=== PATIENT | male | born 1985 | race Hispanic/Latino ===

== ENCOUNTER 2018-08-27 16:57 | Emergency (ER) | payer MEDICAID, OTHER ==
[2018-08-27 18:19] VITALS: BP 136/80; PULSE 67; RESP 18; TEMP 98.4; O2SAT 100
--- NOTE | 2018-08-27 21:38 | ED PDOC ---
HPI: Male Pain Chief Complaint (Provider): Male genitourinary History Per: Patient History/Exam Limitations: no limitations Onset/Duration Of Symptoms: Days (2x weeks) Current Symptoms Are (Timing): Still Present Severity: Moderate Quality Of Discomfort: Other (irritation) Associated Symptoms: denies: Other (denies difference in bowel movement, fever.) Additional Complaint(s): 32 year old male with no pertinent medical history presents to the ED with complaints of irritation around his anus for 2x weeks. Patient denies difference in bowel movement and denies fevers. Patient reports last having unprotected anal sexual intercourse 3x months ago. PMD: None provided. <Carolyn Flores - Last Filed: 08/27/18 23:22> <Yaneli Petit - Last Filed: 09/01/18 17:09> Time Seen by Provider: 08/27/18 19:44 Chief Complaint (Nursing): Male Genitourinary Past Medical History Reviewed: Historical Data, Nursing Documentation, Vital Signs Vital Signs: Last Vital Signs Temp 98.4 F 08/27/18 18:12 Pulse 67 08/27/18 18:12 Resp 18 08/27/18 18:12 BP 136/80 08/27/18 18:12 Pulse Ox 100 08/27/18 18:12 - Medical History PMH: Asthma - Surgical History Surgical History: Tonsillectomy - Family History Family History: States: Unknown Family Hx <Carolyn Flores - Last Filed: 08/27/18 23:22> Vital Signs: Last Vital Signs Temp 98.4 F 08/27/18 18:12 Pulse 67 08/27/18 18:12 Resp 18 08/27/18 18:12 BP 136/80 08/27/18 18:12 Pulse Ox 100 08/27/18 23:22 <Yaneli Petit - Last Filed: 09/01/18 17:09> - Allergies Allergies/Adverse Reactions: Allergies Allergy/AdvReac Type Severity Reaction Status Date / Time No Known Allergies Allergy Verified 08/27/18 18:10 Review of Systems ROS Statement: Except As Marked, All Systems Reviewed And Found Negative Constitutional: Negative for: Fever Gastrointestinal: Negative for: Other (denies difference in bowel movement ) <Carolyn Flores - Last Filed: 08/27/18 23:22> Physical Exam - Reviewed Nursing Documentation Reviewed: Yes Vital Signs Reviewed: Yes - Physical Exam Appears: Positive for: Well, Non-toxic, No Acute Distress Head Exam: Positive for: ATRAUMATIC, NORMOCEPHALIC Skin: Positive for: Normal Color Cardiovascular/Chest: Positive for: Regular Rate, Rhythm Respiratory: Positive for: Normal Breath Sounds Rectal: Positive for: Other (irritated skin around perirectal area, no vesicular lesions, (-) induration, (-) fluctuance, (+) fissure at 12 o'clock position. no abscess) Neurologic/Psych: Positive for: Alert, Oriented (3x) <Carolyn Flores - Last Filed: 08/27/18 23:22> - ECG O2 Sat by Pulse Oximetry: 100 (RA) Pulse Ox Interpretation: Normal <Carolyn Flores - Last Filed: 08/27/18 23:22> Medical Decision Making Medical Decision Makin:44 Initial impression: 32 year old male with rectal irritation. Initial plan: * reevaluation 20:30 Upon provider reevaluation patient is feeling better, medically stable, and requires no further treatment in the ED at this time. Patient left before given discharge instructions. Scribe Attestation: Documented by Yaneli Ortiz, acting as a scribe for Carolyn Flores PA-C. Provider Scribe Attestation: All medical record entries made by the Scribe were at my direction and personally dictated by me. I have reviewed the chart and agree that the record accurately reflects my personal performance of the history, physical exam, medical decision making, and the department course for this patient. I have also personally directed, reviewed, and agree with the discharge instructions and disposition. <Carolyn Flores - Last Filed: 08/27/18 23:22> Disposition - Disposition Disposition Time: 20:30 <Carolyn Flores - Last Filed: 08/27/18 23:22> <Yaneli Pteit - Last Filed: 09/01/18 17:09> - Clinical Impression Clinical Impression: Anal fissure - Disposition Referrals: at [facility] [Outside] Condition: GOOD Instructions: Anal Fissure Forms: [facility] (Mexican) Addendum Addendum: 09/01/18 17:09 Reviewed chart. Agree with PA assessment and plan. <Yaneli Petit - Last Filed: 09/01/18 17:09>
== END 2018-08-27 23:13 | disposition home or self-care (01) ==
LOC: H.ER 16:57
DX: K60.2 Anal fissure, unspecified (principal)

== ENCOUNTER 2018-10-30 08:53 | Emergency (ER) | payer SELFPAY ==
[2018-10-30 09:01] VITALS: BMI 24.4
[2018-10-30 09:02] VITALS: O2SAT 100
--- NOTE | 2018-10-30 10:07 | ED PDOC ---
HPI: Psych/Substance Abuse Time Seen by Provider: 10/30/18 09:20 Chief Complaint (Nursing): Anxiety Chief Complaint (Provider): [place] attack History Per: Patient Additional Complaint(s): 32 yo male, PMH of anxiety and Opiod addition, presents to ED for evaluation of a possible panic attack. Pt reports that he has a history of anxiety; however, it never presented like this before. Pt reports that he went to work at 6 am, took his Xanax 1 mg PO as he normally does around 7. Pt notes that around 745 he ad acute onset of chest tightness, SOB, palpitations, Upper extremity parenthesis and it got bteer around 8 am, then returned briefly around 8:`15 when Pt started to think about when it might return. Pt currently asymptomatic, denies any HI or SI; however, wanted to get checked to see if it was a panic attack. Pt offered crisis eval and declined at this time. Past Medical History Vital Signs: Last Vital Signs Temp 98.2 F 10/30/18 09:01 Pulse 69 10/30/18 09:01 Resp 20 10/30/18 09:01 BP 123/80 10/30/18 09:01 Pulse Ox 100 10/30/18 09:01 - Medical History PMH: Anxiety, Asthma - Surgical History Surgical History: Tonsillectomy - Family History Family History: States: Unknown Family Hx - Allergies Allergies/Adverse Reactions: Allergies Allergy/AdvReac Type Severity Reaction Status Date / Time No Known Allergies Allergy Verified 08/27/18 18:10 Review of Systems ROS Statement: Except As Marked, All Systems Reviewed And Found Negative Psych: Positive for: Anxiety Physical Exam - Reviewed Nursing Documentation Reviewed: Yes Vital Signs Reviewed: Yes - Physical Exam Appears: Positive for: Well, Non-toxic, No Acute Distress Head Exam: Positive for: ATRAUMATIC, NORMAL INSPECTION, NORMOCEPHALIC Skin: Positive for: Normal Color, Warm, DRY Eye Exam: Positive for: EOMI, Normal appearance, PERRL ENT: Positive for: Normal ENT Inspection Neck: Positive for: Normal, Painless ROM Cardiovascular/Chest: Positive for: Regular Rate, Rhythm Respiratory: Positive for: CNT, Normal Breath Sounds Gastrointestinal/Abdominal: Positive for: Normal Exam, Soft Back: Positive for: Normal Inspection Extremity: Positive for: Normal ROM Neurologic/Psych: Positive for: Alert, Oriented - Laboratory Results Result Diagrams: 10/30/18 10:15 10/30/18 10:15 - ECG O2 Sat by Pulse Oximetry: 100 Medical Decision Making Medical Decision Making: EKG interpreted and cleared by ED MD LAbs resulted and reviewed with Pt who was doing well on re-eval Crisis eval again offered and Pt declined. Pt calm after discussion, asking to go home, feels well enough and reports he will seek out a therapist if attacks happen again Disposition - Clinical Impression Clinical Impression: Anxiety attack - Patient ED Disposition Is Patient to be Admitted: No - Disposition Disposition: Routine/Home Disposition Time: 01:00 Condition: STABLE Instructions: Anxiety, Adult (DC) Forms: [facility] (Spanish)
[2018-10-30 10:27] LABS: BASO # 0.1 K/uL (0.0-0.2); BASO % 1.1 % (0.0-2.0); EOS % 0.6 % (0.0-4.0); HEMOGLOBIN 16.2 g/dL (12.0-18.0); LYMPH # 0.7 K/uL (1.0-4.3); MEAN CELL VOLUME 94.5 fl (80.0-94.0); MEAN CORPUSCULAR HEMOGLOBIN 31.5 pg (27.0-31.0); MEAN CORPUSCULAR HGB CONC 33.3 g/dL (33.0-37.0); MEAN PLATELET VOLUME 8.7 fl (7.2-11.7); MONO # 0.5 K/uL (0.0-0.8); MONO % 10.8 % (0.0-10.0); NEUT # 3.3 K/uL (1.8-7.0); NEUT % 71.5 % (50.0-75.0); NRBC % 0.1 % (0.0-0.0); RBC 5.15 Mil/uL (4.40-5.90); RED CELL DISTRIBUTION WIDTH 13.1 % (11.5-14.5); WHITE BLOOD COUNT 4.6 K/uL (4.8-10.8)
[2018-10-30 10:34] LABS: ALB/GLOB RATIO 1.4 (1.0-2.1); ALBUMIN 4.5 g/dL (3.5-5.0); ALT/SGPT 36 U/L (21-72); AST/SGOT 19 U/L (17-59); BLOOD UREA NITROGEN 11 mg/dl (9-20); CALCIUM 9.5 mg/dL (8.4-10.2); GFR NON-AFRICAN AMERICAN > 60
[2018-10-30 10:41] LABS: BARBITURATES, UR NEGATIVE (NEGATIVE); BENZODIAZEPINES, UR POSITIVE (NEGATIVE); OPIATES, UR NEGATIVE (NEGATIVE); PHENCYCLIDINE, UR NEGATIVE (NEGATIVE)
--- NOTE | 2018-10-30 10:47 | CARD ---
APPROVED REPORT Date of service: 10/30/2018 EKG Measurement Heart [id number] <Conclusion> Normal sinus rhythm with sinus arrhythmia Possible Left atrial enlargement Early repolarization Borderline ECG
[2018-10-30 13:04] VITALS: BP 125/80; PULSE 75; RESP 16; TEMP 97.8
== END 2018-10-30 13:04 | disposition home or self-care (01) ==
LOC: H.ER 08:53
DX: F41.0 Panic disorder [episodic paroxysmal anxiety] (principal)
CPT/HCPCS: 80053; 84443; 84484; 85025; 93005; 99284; G0480

== ENCOUNTER 2019-01-26 15:24 | Emergency (ER) | payer SELFPAY ==
[2019-01-26 15:24] VITALS: BMI 24.4
[2019-01-26 15:36] VITALS: BP 115/78; PULSE 81; RESP 16; TEMP 98.3; O2SAT 99
== END 2019-01-26 16:45 | disposition left against medical advice (07) ==
LOC: H.ER 15:24
DX: Z02.89 Encounter for other administrative examinations (principal)

== ENCOUNTER 2019-03-15 09:02 | Emergency (ER) | payer SELFPAY ==
[2019-03-15 09:02] VITALS: BMI 24.4
--- NOTE | 2019-03-15 09:44 | ED PDOC ---
HPI: General Adult Time Seen by Provider: 03/15/19 09:17 Chief Complaint (Nursing): GI Problem Chief Complaint (Provider): Abdominal discomfort History Per: Patient History/Exam Limitations: no limitations Onset/Duration Of Symptoms: Days Have you had recent travel within the past 21 days to any of the following countries: [place], [place], [place] or [place]?: No Current Symptoms Are (Timing): Still Present Additional History Per: Patient Additional Complaint(s): 33yo male, otherwise well, comes to ER reporting abdominal discomfort x 4 days. He states he has had bloating, is nauseous and has had an episode of vomiting; patient is able to tolerate PO intake. He also reports throat discomfort. Patient additionally requesting HIV test as he is sexually active and had a new partner recently. Otherwise, no fever, chills, chest pain, shortness of breath, cough, or other complaints, no dysria or penile discharge. Patient also notes he was recently diagnosed with strep throat and completed a course of antibiotics. PMD: Dr. Sang HADLEY Past Medical History Reviewed: Historical Data, Nursing Documentation, Vital Signs Vital Signs: Last Vital Signs Temp 98.7 F 03/15/19 09:13 Pulse 70 03/15/19 09:13 Resp 20 03/15/19 09:13 BP 115/72 03/15/19 09:13 Pulse Ox 99 03/15/19 09:13 - Medical History PMH: Anxiety, Asthma - Surgical History Surgical History: Tonsillectomy - Family History Family History: States: Unknown Family Hx - Social History Current smoker - smoking cessation education provided: No Alcohol: Occasional Drugs: Denies (sober x 2 years) - Home Medications Home Medications: Ambulatory Orders Medication Instructions Recorded Famotidine [Pepcid] 20 mg PO BID PRN #10 tab 03/15/19 - Allergies Allergies/Adverse Reactions: Allergies Allergy/AdvReac Type Severity Reaction Status Date / Time No Known Allergies Allergy Verified 01/26/19 15:32 Review of Systems ROS Statement: Except As Marked, All Systems Reviewed And Found Negative Constitutional: Negative for: Fever, Chills ENT: Positive for: Throat Pain Cardiovascular: Negative for: Chest Pain Respiratory: Negative for: Cough, Shortness of Breath Gastrointestinal: Positive for: Nausea, Vomiting (x 1), Abdominal Pain Neurological: Negative for: Weakness, Numbness Physical Exam - Reviewed Nursing Documentation Reviewed: Yes Vital Signs Reviewed: Yes - Physical Exam Appears: Positive for: Well, Non-toxic Head Exam: Positive for: ATRAUMATIC, NORMAL INSPECTION, NORMOCEPHALIC Skin: Positive for: Normal Color Eye Exam: Positive for: Normal appearance, EOMI, PERRL ENT: Positive for: Normal ENT Inspection. Negative for: Pharyngeal Erythema, Tonsillar Exudate, Tonsillar Swelling Neck: Positive for: Normal, Supple Cardiovascular/Chest: Positive for: Regular Rate, Rhythm. Negative for: Tachycardia Respiratory: Positive for: Normal Breath Sounds. Negative for: Wheezing, Respiratory Distress Gastrointestinal/Abdominal: Positive for: Normal Exam, Soft. Negative for: Tenderness, Mass, Guarding, Rebound Back: Positive for: Normal Inspection Extremity: Positive for: Normal ROM. Negative for: Pedal Edema Neurological/Psych: Positive for: Awake, Alert, Oriented (x 3) - Laboratory Results Result Diagrams: 03/15/19 10:20 03/15/19 10:20 - ECG O2 Sat by Pulse Oximetry: 99 (RA) Pulse Ox Interpretation: Normal Medical Decision Making Medical Decision Makinyo male with abdominal discomfort, throat discomfort Requesting HIV testing Plan: -- Labs -- Rapid HIV -- Rapid strep EG NSR 1154 Labs reviewed, HIV is non-reactive Rapid strep is negative as well Patient with well exam, and on reassessment, reports he feels better. tolerated po. Patient informed of results and instructed to follow up with PMD in 1-2 days. --- Scribe Attestation: Documented by Kae Briseno, acting as a scribe for Bella Means MD. Provider Scribe Attestation: All medical record entries made by the Scribe were at my direction and personally dictated by me. I have reviewed the chart and agree that the record accurately reflects my personal performance of the history, physical exam, medical decision making, and the department course for this patient. I have also personally directed, reviewed, and agree with the discharge instructions and disposition. Disposition - Clinical Impression Clinical Impression: Gastritis - Patient ED Disposition Is Patient to be Admitted: No Counseled Patient/Family Regarding: Studies Performed, Diagnosis, Need For Followup - Disposition Disposition: Routine/Home Disposition Time: 11:56 Condition: GOOD Additional Instructions: follow up with your primary doctor in 1-2 days return to the ED with any worsening or concerning symptoms Prescriptions: Famotidine [Pepcid] 20 mg PO BID PRN #10 tab PRN Reason: Heartburn Instructions: Gastritis (DC) Forms: [facility] (Slovak)
[2019-03-15] MEDS ORDERED: Sodium Chloride 0.9% 1,000 ML IV STA (09:50)
[2019-03-15 10:43] LABS: BASO # 0.1 K/uL (0.0-0.2); BASO % 2.2 % (0.0-2.0); EOS # 0.1 K/uL (0.0-0.7); LYMPH # 1.3 K/uL (1.0-4.3); LYMPH % 28.2 % (20.0-40.0); MEAN CELL VOLUME 93.5 fl (80.0-94.0); MEAN CORPUSCULAR HEMOGLOBIN 32.5 pg (27.0-31.0); MEAN CORPUSCULAR HGB CONC 34.8 g/dL (33.0-37.0); MONO # 0.3 K/uL (0.0-0.8); MONO % 6.9 % (0.0-10.0); NEUT # 2.7 K/uL (1.8-7.0); NEUT % 60.7 % (50.0-75.0); RBC 4.61 Mil/uL (4.40-5.90); RED CELL DISTRIBUTION WIDTH 12.1 % (11.5-14.5); WHITE BLOOD COUNT 4.5 K/uL (4.8-10.8)
[2019-03-15 10:49] LABS: ALB/GLOB RATIO 1.7 (1.0-2.1); ALBUMIN 4.3 g/dL (3.5-5.0); ALT/SGPT 21 U/L (21-72); AST/SGOT 19 U/L (17-59); BLOOD UREA NITROGEN 20 mg/dl (9-20); CALCIUM 8.8 mg/dL (8.4-10.2); GFR NON-AFRICAN AMERICAN > 60
[2019-03-15 12:22] VITALS: BP 117/75; PULSE 74; RESP 16; TEMP 98.2
--- NOTE | 2019-03-15 19:02 | CARD ---
APPROVED REPORT Date of service: 03/15/2019 EKG Measurement Heart [id number] <Conclusion> Normal sinus rhythm Early repolarization Normal ECG
[2019-03-16 08:18] VITALS: O2SAT 99
== END 2019-03-15 12:22 | disposition home or self-care (01) ==
LOC: H.ER 09:02
DX: K29.70 Gastritis, unspecified, without bleeding (principal); J45.909 Unspecified asthma, uncomplicated
CPT/HCPCS: 80053; 85025; 87070; 87390; 87430; 93005; 96374; 99284; J2405; J7030